=== PATIENT | male | born 1995 | race Two or more races ===

== ENCOUNTER 2018-04-20 21:49 | Emergency (ER) | payer OTHER ==
--- NOTE | 2018-04-20 22:02 | EDM.PDOC ---
ED HPI GENERAL MEDICAL PROBLEM - General Chief Complaint: Skin Complaint Stated Complaint: R LEG INFECTION? Time Seen by Provider: 04/20/18 21:50 Source of Information: Reports: Patient, RN, RN Notes Reviewed History Limitations: Reports: No Limitations - History of Present Illness INITIAL COMMENTS - FREE TEXT/NARRATIVE: Patient presents the emergency room for evaluation of a rash. The patient states he first noticed the rash 2 days ago. The rash is somewhat pruritic and somewhat painful to touch. The rash is only located on one side of the body. The rash is located along the upper lateral right thigh. The patient denies any exposures. No recent changes in a lotions creams or detergents. No close family members or contacts with similar symptoms. Otherwise no other concerns. Onset Date: 04/18/18 - Related Data Home Meds: Home Meds valACYclovir HCl [valACYclovir] 1,000 mg PO TID #5 tablet 04/20/18 [Rx] valACYclovir HCl [valACYclovir] 1,000 mg PO TID 5 Days #16 tablet 04/20/18 [Rx] ED ROS GENERAL - Review of Systems Review Of Systems: See Below Constitutional: Denies: Fever, Chills Respiratory: Denies: Shortness of Breath, Cough Cardiovascular: Denies: Chest Pain, Palpitations GI/Abdominal: Denies: Abdominal Pain, Nausea, Vomiting Skin: Reports: Pruritis, Rash Neurological: Reports: No Symptoms ED EXAM, SKIN/RASH Exam: See Below Exam Limited By: No Limitations General Appearance: Alert, No Apparent Distress Respiratory/Chest: No Respiratory Distress, Lungs Clear, Normal Breath Sounds Cardiovascular: Normal Peripheral Pulses, Regular Rate, Rhythm Peripheral Pulses: 2+: Radial (L), Radial (R) GI/Abdominal: Normal Bowel Sounds, Soft, Non-Tender Neurological: Alert, Oriented Skin: Rash Location, Skin: Lower Extremity, Right Characteristics: Vesicular Associated features: Crusting, Weeping Departure - Departure Time of Disposition: 22:02 Disposition: Home, Self-Care 01 Condition: Good Clinical Impression: Shingles Qualifiers: Herpes zoster complications: without complications Qualified Code(s): B02.9 - Zoster without complications - Discharge Information *PRESCRIPTION DRUG MONITORING PROGRAM REVIEWED*: Not Applicable *COPY OF PRESCRIPTION DRUG MONITORING REPORT IN PATIENT NILSA: Not Applicable Prescriptions: valACYclovir HCl [valACYclovir] 1,000 mg PO TID #5 tablet valACYclovir HCl [valACYclovir] 1,000 mg PO TID 5 Days #16 tablet Instructions: Jacqueline Forms: ED Department Discharge Additional Instructions: 1. Stay well hydrated and rest 2. Take medication for the full coarse, even if symptoms are better 3. Avoid direct contact of lesions with others 4. Can take Advil/Tylenol if needed 5. See your PCP as symptoms warrant - Problem List Review Problem List Initiated/Reviewed/Updated: Yes - Assessment/Plan Assessment:: Jacqueline Plan: Assessment findings discussed with patient. Will start on Valacyclovir TID for 7 days. SE discussed. See PCP as symptoms warrant.
== END 2018-04-20 22:23 | disposition home or self-care (01) ==
LOC: VM.ED 21:49 → SUPCPDRO 21:49 → VM.ED 22:23
DX: B02.9 Zoster without complications (principal)
CPT/HCPCS: 99283